=== PATIENT | male | born 1985 | race Caucasian/White ===

== ENCOUNTER 2019-01-20 11:01 | Emergency (ER) | payer SELFPAY ==
[2019-01-20 11:11] VITALS: BP 156/97; PULSE 83; RESP 18; TEMP 36.6; O2SAT 100
--- NOTE | 2019-01-20 11:44 | PC.NURSE ---
Addendum entered by Fatuma Caro 01/20/19 11:50: Patient treating back pain since 2007 with chiropractic and cortisone shots years ago, denies past CT or MRI. Pt took 800mg Ibuprofen and Baclofen at 1100 although, pt says this does not help with pain or muscle spasm. Pt describes pain on a scale of 0-10, between a 4-7 when moving and between a 0-3 depending on position, currently at a 0. Pt has intermittent right shooting pain all the way down the right leg and tingling in the feet and sharp shooting pain to the knee on the left leg with an episode of incontinence yesterday. Pt last bowel movement 01/19/19 Pt describes bending over two weeks ago to clean the litter box and felt a tear and a pop. Has felt some grinding sensation. Original Note: Patient describes worsening of back pain starting approximately two weeks ago.
--- NOTE | 2019-01-20 12:50 | ED_ITS ---
HPI - Back Pain/Injury <Cha Chavez PA-C - Last Filed: 01/20/19 15:54> General Chief Complaint: Back Pain/Injury Stated Complaint: Hurt back, lower rt side Time Seen by Provider: 01/20/19 12:23 Source: patient Mode of arrival: ambulatory Limitations: no limitations History of Present Illness HPI Narrative: This 33-year-old male with a history of chronic intermittent low back pain comes in due to persistent and worsening pain that started about 2 weeks ago. He states that prior to that he bent down and felt a shocky pain in his back and in his thigh, and had tightness after that. Then, when he bent down again, he felt a pop, then tightness and pain in his low back that radiated down more to his right foot than the left. He states this tends to be felt more in the thigh and foot. He states that he has a grinding sensation, pain is much worse with sitting, better lying down or up and walking, but initiating movement is hard. He states that he felt some numbness in his groin 1 day when this 1st started but has none now. He saw his PCP who prescribed baclofen and ibuprofen. He has increased the dose of baclofen but does not seem to be helping. He states that he has not had any urinary changes or retention, no bowel changes. He has not had any new rash or fever. He does not have weakness in his extremities. 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 He denies other new complaints on systems review Related Data Previous Rx's Medication Instructions Recorded cyclobenzaprine 10 mg PO Q8H #12 tab 01/20/19 lidocaine [Lidoderm] 2 patch TOP DAILY #30 each 01/20/19 meloxicam [Mobic] 15 mg PO DAILY #10 tab 01/20/19 tramadol 50 mg PO Q6H PRN #10 tab 01/20/19 Allergies Allergy/AdvReac Type Severity Reaction Status Date / Time Penicillins Allergy Verified 01/20/19 11:17 Review of Systems <Cha Chavez PA-C - Last Filed: 01/20/19 15:54> Review of Systems ROS Unobtainable: All systems reviewed & are unremarkable except as noted in HPI and below PFSH <Cha Chavez PA-C - Last Filed: 01/20/19 15:54> Medical History (Updated 01/20/19 @ 13:27 by Cha Chavez PA-C) Chronic low back pain (Chronic) GERD (gastroesophageal reflux disease) (Chronic) HTN (hypertension) (Chronic) IBS (irritable bowel syndrome) (Chronic) Panic attacks (Chronic) Surgical History (Updated 01/20/19 @ 13:27 by Cha Chavez PA-C) Status post eye surgery (Resolved) Status post tonsillectomy (Resolved) Social History Smoking Status: Current some day smoker Social History Smoking Status: Current some day smoker Exam <Cha Chavez PA-C - Last Filed: 01/20/19 15:54> Narrative Exam Narrative: GENERAL APPEARANCE: Patient lying supine comfortably, in no distress. PULMONARY: Lungs clear to auscultation bilaterally CV: Regular rhythm regular without murmur, normal S1 and S2, no S3 or S4 MUSCULOSKELETAL: Mild tenderness over the mid to inferior lumbar spine and musculature, more tender over the right SI joint and surrounding musculature. He can flex the trunk to about 50? with tenderness. He has somewhat reduced lateral bend and rotation bilaterally secondary to tenderness. Stiff with sit:stand, normal gait once moving, no foot drop. Lower extremity strength 5/5 bilateral hip flexors, knee extensors, foot plantar flexion. Negative modified straight leg raise NEUROLOGIC: Bilateral patellar and Achilles DTRs 1+ Initial Vital Signs Initial Vital Signs: Vital Signs Temperature 97.9 F 01/20/19 11:11 Pulse Rate 83 01/20/19 11:11 Respiratory Rate 18 01/20/19 11:11 Blood Pressure 156/97 H 01/20/19 11:11 Pulse Oximetry 100 01/20/19 11:11 <Tanya Ren DO - Last Filed: 01/20/19 18:54> Initial Vital Signs Initial Vital Signs: Vital Signs Temperature 97.9 F 01/20/19 11:11 Pulse Rate 83 01/20/19 11:11 Respiratory Rate 18 01/20/19 11:11 Blood Pressure 156/97 H 01/20/19 11:11 Pulse Oximetry 100 01/20/19 11:11 Course <Cha Chavez PA-C - Last Filed: 01/20/19 15:54> Vital Signs - 8 hr 01/20/19 11:11 01/20/19 13:23 Temperature 97.9 F Pulse Rate 83 95 H Respiratory Rate 18 20 Blood Pressure 156/97 H Blood Pressure [Left Arm] 152/106 H Pulse Oximetry 100 96 <Tanya Ren DO - Last Filed: 01/20/19 18:54> Vital Signs - 8 hr 01/20/19 11:11 01/20/19 13:23 Temperature 97.9 F Pulse Rate 83 95 H Respiratory Rate 18 20 Blood Pressure 156/97 H Blood Pressure [Left Arm] 152/106 H Pulse Oximetry 100 96 Discharge Plan Departure Patient Disposition: Home Clinical Impression: Sacroiliac dysfunction Low back strain Qualifiers: Encounter type: initial encounter Qualified Code(s): S39.012A - Strain of muscle, fascia and tendon of lower back, initial encounter Sciatica Qualifiers: Laterality: bilateral Qualified Code(s): M54.31 - Sciatica, right side Discharge Date/Time: 01/20/19 13:26 Interventions: ED Discharge Assessment Last Done: 01/20/19 13:26 Instructions: DI for Low Back Pain, DI for Back Pain With Sciatica, DI Sac roiliac Joint Dysfunction Activity Restrictions/Additional Instructions: Please return as we talked about if you have acutely worsening symptoms, or new symptoms such as inability to urinate, weakness in your extremities, or numbness in your groin. Please stop the ibuprofen and baclofen, and try the meloxicam I prescribed for you as well as the cyclobenzaprine. Remember the cyclobenzaprine can make you sleepy and not to drive. I have prescribed a few pain pills called tramadol for you to try (remember those can make you sleepy as well). Please take the tramadol with Tylenol as they tend to work well together. Please restart the lidocaine patches as well. Follow up with your PCP in the next few days to assess your progress, hopefully get a referral for PT and also further testing if you need it. Prescriptions: New cyclobenzaprine 10 mg tablet 10 mg PO Q8H Qty: 12 RF: 0 meloxicam [Mobic] 15 mg tablet 15 mg PO DAILY Qty: 10 RF: 0 tramadol 50 mg tablet 50 mg PO Q6H PRN (Reason: acute back pain/sciatica) Qty: 10 RF: 0 lidocaine [Lidoderm] 5 % adhesive patch,medicated 2 patch TOP DAILY Qty: 30 RF: 0 Referrals: Zahida Lucio MD [Primary Care Provider] - <Tanya Ren DO - Last Filed: 01/20/19 18:54> Cosign ED Attending Cosignature Attestation: I was immediately available in the d epartment for consultation. Documentation has been reviewed. I agree with assessment and plan.
[2019-01-20 13:23] VITALS: BP 152/106; PULSE 95; RESP 20; O2SAT 96
== END 2019-01-20 13:26 | disposition home or self-care (01) ==
PROVIDERS: Emergency Provider Internal Medicine; PCP Internal Medicine
DX: S39.012A Strain of muscle, fascia and tendon of lower back, initial encounter (principal); M54.31 Sciatica, right side
CPT/HCPCS: 99282; 99283